=== PATIENT | male | born 1990 | race Caucasian/White ===

== ENCOUNTER 2022-02-12 16:00 | Emergency (ER) | payer OTHER, SELFPAY ==
[2022-02-12 16:01] VITALS: BP 160/95; PULSE 50; RESP 16; TEMP 36.3; O2SAT 100; BMI 29.3
--- NOTE | 2022-02-12 16:18 | EDS_ITS ---
HPI History of Present Illness Chief Complaint: Other, Pain/Inj Informant: patient and spouse/S.O. Narrative Narrative: Patient is a 31-year-old male with no single past medical history presenting with worsening epigastric abdominal pain. He has had epigastric abdominal pain for the past 5 days. It started the morning after [employer] [employer]. Initially he thought he was just hung over or had food poisoning because he also had vomiting and diarrhea with it. The pain has persisted despite resolution of the vomiting and diarrhea and this morning it worsened. He notes this afternoon it became very intense and now radiates to his back. He has had a lot of belching with it. He has been on Pepcid twice a day for the past 4 days as well as trying Tums Tylenol and Benadryl at night as well as his 's Zofran. He is on no relief of his symptoms. He currently denies any nausea. Denies any black or blood in his stool. Denies any history of any abdominal surgeries. Notes he was drinking the night of the [place] [employer] and drinks socially once or twice a week. He has not had very much to eat this week but did eat some egg casserole casserole but his pain did not worsen until sometime after eating out. Is never had an EGD or colonoscopy. The first day he had a lot of sweating but no report of any fevers or chills. No other complaints or concerns at this time. PFSH PFS Medical History no medical history Home Medications pantoprazole 20 mg tablet,delayed release (Protonix) 20 mg PO BID #30 tabs 02/12/22 [Rx Last Taken Unknown] sucralfate 1 gram tablet (Carafate) 1 g PO TID #21 tabs 02/12/22 [Rx Last Taken Unknown] Allergy/AdvReac Type Severity Reaction Status Date / Time No Known Allergies Allergy Verified 02/12/22 16:03 Surgical History no surgical history Social History Smoking Status: Never smoker ROS ROS ED Constitutional Constitutional ED: Reports sweats; Denies chills or fever(s) Eyes Eyes: Denies change in vision ENT ENT ED: Denies rhinorrhea or sore throat Cardiovascular Cardiovascular: Denies chest pain or palpitations Respiratory/Chest Respiratory/Chest: Denies cough or dyspnea Gastrointestinal Gastrointestinal: Reports abdominal pain, diarrhea, nausea and vomiting; Denies constipation or melena Genitourinary Genitourinary ED: Denies dysuria or hematuria Musculoskeletal Musculoskeletal: Reports back pain; Denies arthralgias or myalgias Integumentary Denies rash Neurologic Neurologic: Denies headache(s) or weakness Psychiatric Psychiatric: Denies anxiety Hematologic/Lymphatic Hematologic/Lymphatic: Denies easy bleeding or easy bruising EXAM Physical Exam Const Vital Signs: 02/12/22 16:01 02/12/22 16:56 02/12/22 17:55 Temperature 97.3 F L Temperature Source Temporal Pulse Rate 50 L 44 L Respiratory Rate 16 Respiratory Effort Normal Non-Labored Respiratory Pattern Normal Blood Pressure 160/95 H 135/89 H Blood Pressure Mean 116 Pulse Ox 100 Oxygen Delivery Method Room Air Positive well nourished and well developed General Appearance ED: well developed and NAD HEENT Reports moist mucous membranes HEENT Narrative: Normal oropharynx Eyes PERRL and EOMs intact bilaterally Neck supple and no JVD Chest Wall inspection of chest normal and palpation of chest normal Resp normal respiratory effort and clear to auscultation bilaterally Cardio regular rate, regular rhythm and no murmurs GI non-distended Auscultation: hypoactive bowel sounds Palpation: tender other (Diffuse, mild); Negative for guarding Back/Spine no CVA tenderness Neuro oriented x3 Motor Exam: Negative for general weakness Psych mental status grossly normal Skin no rashes or lesions noted General Skin Exam: Negative for jaundice MDM MDM MDM Narrative Medical decision making narrative: Patient evaluated for 5 days of epigastric abdominal discomfort. Today it started radiating to his back. It was preceded by a night of drinking and eating at a [employer]. He has had associated vomiting and diarrhea however those symptoms have resolved. He is tried [id number] Pepcid with no relief. Patient's vital signs are significant for bradycardia however he is mildly hypertensive. He is not complain of any dizziness, lightheadedness or other symptomatic bradycardia. Given his age and overall athletic appearance I suspect it is resting bradycardia. Patient is offered morphine for pain control but declines. CBC is normal. BMP shows a mildly elevated chloride but a normal BUN and creatinine as well as normal liver panel and normal lipase. Suspect he has some mild dehydration. Lab work not significant with any type of GI bleed. He denies any black or blood in his stool and I do not think a rectal exam is emergently indicated at this time. Urinalysis does show 5+ ketones but otherwise is normal. Patient is given a liter of IV fluids in the ER. He is given a GI cocktail. On repeat exam he notes his pain is slightly improved however he continues to have epigastric pain. He does not think the GI cocktail helped significantly. Discussed ordering a CT scan of his abdomen to further evaluate for any acute intra-abdominal pathology including but not limited to colitis and aortic pathology. Patient declined stating that overall he thinks he is feeling better. He will be started on Protonix as well as Carafate. Is counseled on return precautions. Is given referral to GI. Patient and verbalized agreement understanding this plan. Patient counseled on low acid diet. Patient has no chest pain, respiratory symptoms or risk factors for any type of cardiac disease. Lab Data Attestation: I reviewed the patient's lab results. Labs: Laboratory Results - last 24 hr 02/12/22 02/12/22 02/12/22 16:25 16:25 17:00 WBC 5.4 RBC 4.85 Hgb 15.3 Hct 43.0 MCV 88.7 MCH 31.5 MCHC 35.6 RDW Std Deviation 38.6 RDW Coeff of Prudencio 11.9 Plt Count 167 MPV 9.5 Immature Gran % (Auto) 0.200 Neut % (Auto) 55.8 Lymph % (Auto) 34.4 Burnet % (Auto) 7.0 Eos % (Auto) 2.2 Baso % (Auto) 0.4 Absolute Neuts (auto) 3.0 Absolute Lymphs (auto) 1.86 Nucleated RBC % 0 Sodium 140 Potassium 3.6 Chloride 109 H Carbon Dioxide 26.0 Anion Gap 5 BUN 15 Creatinine 0.90 Estim Creat Clear Calc 142.14 Est GFR (MDRD) Af Amer 126 Est GFR (MDRD) Non-Af 104 BUN/Creatinine Ratio 16.7 Glucose 101 Calcium 9.1 Total Bilirubin 0.80 AST 14 L ALT 27 Alkaline Phosphatase 45 Total Protein 6.9 Albumin 4.1 Globulin 2.8 Albumin/Globulin Ratio 1.5 Lipase 95 Urine Color Yellow Urine Clarity Clear Urine pH 6.0 Ur Specific Hailey 1.020 Urine Protein Negative Urine Glucose (UA) Normal Urine Ketones 5 H Urine Occult Blood Negative Urine Nitrite Negative Urine Bilirubin Negative Urine Urobilinogen Normal Ur Leukocyte Esterase Negative Urine RBC 0 SEEN Urine WBC 0 SEEN Ur Squamous Epith Cells 0 SEEN Urine Bacteria 0 SEEN Urine Mucus 0 SEEN Discharge Plan Triage Chief Complaint: Other, Pain/Inj ED Provider: Mirna Turpin Dx/Rx/DC Orders Clinical Impression: Abdominal discomfort, epigastric, Acute dehydration Instructions: ED Epigastric Pain Uncertain Cause Prescriptions: New pantoprazole [Protonix] 20 mg tablet,delayed release (DR/EC) 20 mg PO BID Qty: 30 0RF sucralfate [Carafate] 1 gram tablet 1 g PO TID Qty: 21 0RF Primary Care Provider: Care Physician,No Primary Referrals: Friend,Figueroa, DO [Med Staff - Active Staff] - 10-14 Days if not better Care Physician,No Primary [Primary Care Provider] - Activity Restrictions/Additional Instructions: You may also take Maalox or continue to take Tums. I suspect you have inflammation of your stomach that is causing your symptoms. If your pain worsens, you develop a fever or you have a change in her symptoms please return to the emergency room and we can perform imaging at that time. Disposition Disposition: Home, Self Care Discharge Date/Time: 02/12/22 17:56
[2022-02-12] MEDS: 0.9% Normal Saline 1,000 ML 1000 ML IV (16:32)
[2022-02-12 16:34] LABS: Absolute Lymphocyte Count 1.86 X10^3/uL (0.83-4.51); Basophil# 0.02 X10^3/uL; Basophil% 0.4 % (0-1); Eosinophil# 0.12 X10^3/uL; Eosinophils% 2.2 % (0-5); Hemoglobin 15.3 g/dL (13.0-16.5); Lymphocyte # 1.86 X10^3/ul (0.83-4.51); Lymphocyte % 34.4 % (19-41); Mean Corp Hgb Conc 35.6 g/dL (32-36); Mean Corpuscular Hgb 31.5 pg (27.0-32.0); Mean Corpuscular Volume 88.7 fL (80-94); Mean Platelet Vol. 9.5 fl (6.2-12.0); Monocyte# 0.38 X10^3/uL; NRBC Flagged by Analyzer 0 % (0-5); Neutrophil # 3.01 X10^3/uL (2.7-7.7); Neutrophil % 55.8 % (47-70); Platelet Count 167 K/mm3 (150-450); RBC Distribution Width CV 11.9 % (11.6-14.6); RBC Distribution Width SD 38.6 fl (35.1-43.9); Red Blood Count 4.85 M/mm3 (4.6-6.2); White Blood Count 5.4 K/mm3 (4.4-11.0)
[2022-02-12 16:58] LABS: ALB/GLOB Ratio 1.5 RATIO (0.9-2.4); AST(SGOT) 14 U/L (15-37); Alanine Aminotransfer ALT/SGPT 27 U/L (16-61); Albumin, Serum 4.1 g/dL (3.2-5.0); Alkaline Phosphatase 45 U/L (45-117); Anion Gap 5 (5-15); BUN 15 mg/dL (7-18); BUN/Creat Ratio 16.7 RATIO (10-20); Calcium,Total 9.1 mg/dL (8.5-10.1); Chloride 109 mmol/L (98-107); EST Glomerular Filtration Rate 104 mL/min (>60); Est Glom Filt Rate - Afr Amer 126 mL/min (>60); Estimated Creatinine Clearance 142.14 ml/min; Globulin 2.8 g/dL (2.2-4.2); Glucose 101 mg/dL (74-106); Lipase 95 U/L (73-393); Potassium 3.6 mmol/L (3.5-5.1); Protein, Total 6.9 g/dL (6.4-8.2); Sodium Level 140 mmol/L (136-145)
[2022-02-12 17:08] LABS: Bacteria 0 SEEN /hpf (None Seen); Mucous, Urine 0 SEEN /hpf (<or=2+); Red Blood Cells-Urine 0 SEEN /hpf (0-5); Squamous Epithelial Cells - UA 0 SEEN /hpf (0-5); White Blood Cells 0 SEEN /hpf (0-5)
[2022-02-12] MEDS: Mag Hydrox/Al Hydrox/Simeth 30 ML UDC PO (17:09)
[2022-02-12 17:19] LABS: Color, Urine Yellow (Yellow); Glucose, Dipstick Normal (Normal); Ketone-Dipstick 5 mg/dl (Negative); Leukocyte Esterase-Dipstick Negative /ul (Negative); Nitrite-Dipstick Negative (Negative); Occult Blood-Urine Negative /ul (Negative); Protein-Dipstick Negative (Negative); Urine Bilirubin Dipstick Negative (Negative); Urine Clarity Clear (Clear); Urine Urobilinogen Normal (Normal)
[2022-02-12 17:55] VITALS: BP 135/89; PULSE 44
== END 2022-02-12 17:56 | disposition home or self-care (01) ==
PROVIDERS: Emergency Provider Emergency Medicine; Visit Provider Emergency Medicine
DX: R10.13 Epigastric pain (principal); E86.0 Dehydration
CPT/HCPCS: 80053; 81001; 83690; 85025; 96360; 99284; J7030; A4216